=== PATIENT | female | born 1955 | race Caucasian/White ===

== ENCOUNTER 2016-03-01 20:00 | Emergency (ER) | payer SELFPAY ==
[~2016-03-01 20:00] MED LIST: CALCIUM CHLORIDE 1,000 MG/10 ML DISP.SYRIN IV ONE; EPINEPHRINE 1 MG/10 ML DISP.SYRIN. ONE; LIDOCAINE 2% 100 MG/5 ML DISP.SYRIN. ONE; SODIUM BICARB PED 8.4% 10 MEQ/10 ML DISP.SYRIN. IV ONE
--- NOTE | 2016-03-02 03:04 | PHYS DOC ---
Past Medical History Additional Past Medical Histor: Not obtained secondary to clinical status Past Surgical History Not obtained secondary to clinical status Social History Not obtained secondary to clinical status Adult General Chief Complaint Chief Complaint: CPR/FULL ARREST HPI HPI Patient is a 60 year old female who presents via EMS for cardiac arrest. She was at home in the presence of family and she was eating. She "did not feel well " and then stood up and stated she felt she was going to pass out, then she became unresponsive and fell to the floor. EMS was called and they found her in V. fib. She was defibrillated multiple times by EMS for V fib. She was given amiodarone 150mg and 300mg. She was also given epinephrine x multiple. Medications were given via right proximal tibial IO. Lex airway was placed by EMS. She had approximately 25 minutes of prehospital ACLS. History was obtained by EMS, and other part of history was obtained upon arrival of her daughter. Review of Systems Review of Systems Unable to obtain secondary to clinical status Physical Exam Physical Exam Constitutional: Well developed, well nourished, severe distress. [] HENT: Normocephalic, atraumatic, bilateral external ears normal, oropharynx moist, no oral exudates, nose normal. [] Eyes: Pupils fixed mid-dilated, equal pupils, conjunctiva normal, no discharge. [] Neck: no palpable step-off, supple. [] Cardiovascular: Pulseless [] Lungs & Thorax: No spontaneous respirations [] Abdomen: soft, nondistended. [] Skin: Warm, dry, no erythema, no rash. [] Back: Not assessed due to clinical status. [] Extremities: no edema, cyanotic extremities. [] Neurologic: GCS 3. [] Psychologic: Unable to assess secondary to clinical status. [] Course & Med Decision Making Course & Med Decision Making Please see nursing code notes for exact details. IV, O2, and monitors were placed per ACLS protocol. She was given Epi x few doses, calcium, bicarb, and IV fluids. POC Glucose 383. She remained in PEA throughout resuscitation in the hospital. She initially had good end-tidal CO2, but this decreased throughout resuscitation. Bedside cardiac ultrasound showed ventricular standstill upon final pulse check. Time of was pronounced at 2036. Discussed case with daughter and son-in-law, who accepted the news appropriately. Discussed case with Dr. Staton, PCP, who agrees to file certificate. Dragon Disclaimer Dragon Disclaimer This electronic medical record was generated, in whole or in part, using a voice recognition dictation system. Departure Departure Impression: Primary Impression: Cardiac arrest Disposition: 20 Condition: Referrals: NO PCP (PCP) Oralia MIRAMONTES MD Mar 02, 2016 03:04
== END 2016-03-02 04:18 | disposition expired ==
LOC: ER 22:00
DX: I46.9 Cardiac arrest, cause unspecified (principal)
CPT/HCPCS: 92950; 99285; J0171; J3490